=== PATIENT | male | born 1955 | race American Indian/Alaskan Native ===

== ENCOUNTER 2017-11-04 09:00 | Day surgery (SDC) | payer OTHER ==
[2017-11-04 10:17] LABS: Basophils % (Auto) 0.6 % (0.0-1.8); Eosinophils # (Auto) 0.1 K/mm3 (0.0-0.4); Eosinophils % (Auto) 2.4 % (0.0-4.3); Hematocrit 41.7 % (35.5-45.6); Hemoglobin 13.8 gm/dl (11.8-15.2); Lymphocytes # (Auto) 1.6 K/mm3 (1.2-5.4); Lymphocytes % (Auto) 26.3 % (13.4-35.0); Mean Corpuscular HGB Conc 33 % (32-34); Mean Corpuscular Hemoglobin 30 pg (28-32); Mean Corpuscular Volume 92 fl (84-94); Monocytes # (Auto) 0.6 K/mm3 (0.0-0.8); Monocytes % (Auto) 9.3 % (0.0-7.3); Platelet Count 152 K/mm3 (140-440); Red Blood Count 4.52 M/mm3 (3.65-5.03); Red Cell Distribution Width 15.5 % (13.2-15.2)
[2017-11-04 10:30] LABS: BUN/Creatinine Ratio 15; Blood Urea Nitrogen 18 mg/dL (9-20); Calcium 8.9 mg/dL (8.4-10.2); Hemolysis Index 15
[2017-11-04 10:38] LABS: INR 0.91 (0.87-1.13); Partial Thromboplastin Time 30.1 Sec. (24.2-36.6)
[2017-11-04] MEDS ORDERED: HEPARIN/NS 5000 UNIT/500ML(CATH LAB) 500 ML IR ONE (11:59)
[2017-11-04] MEDS ORDERED: VERSED ONE (12:05)
[2017-11-04] MEDS ORDERED: NACL 0.9% 500 ML 500 ML ONE (12:17)
[2017-11-04] MEDS: SUBLIMAZE ONE ×2 (12:31→12:38)
[2017-11-04] MEDS: XYLOCAINE 2% INFILTRATI ONE ×2 (12:35→12:37)
[2017-11-04] MEDS ORDERED: TORADOL ONE (12:57)
[2017-11-04] MEDS ORDERED: ANCEF/STERILE WATER 2 GM/20 ML 2 GM/20 ML SYRINGE IV ONE (12:57)
--- NOTE | 2017-11-04 13:07 | Short Stay Summary ---
Short Stay Documentation Date of service: 11/04/17 - History Principal diagnosis: venous insufficiency H&P: obtained from office - Allergies and Medications Current Medications: Allergies No Known Allergies Allergy (Unverified 11/04/17 09:00) Home Medications Medication Instructions Recorded Confirmed Last Taken Type Aspirin BABY CHEW TAB 81 mg PO QDAY 11/04/17 11/04/17 11/03/17 History Lisinopril/Hydrochlorothiazide 1 tab PO DAILY 11/04/17 11/04/17 11/04/17 08:00 History [Zestoretic 20-12.5 mg] Pravastatin [Pravachol] 40 mg PO QDAY 11/04/17 11/04/17 11/03/17 History 40 Tamsulosin [Flomax] 0.4 mg PO QDAY 11/04/17 11/04/17 11/03/17 History oxyCODONE /ACETAMINOPHEN [Percocet 1 tab PO Q6HR PRN #25 tablet 11/04/17 Unknown Rx 5/325] - Brief post op/procedure progress note Date of procedure: 11/04/17 Pre-op diagnosis: vwenous insuffiency/compression of vein Post-op diagnosis: same Procedure: BLE venogram and stent placement Anesthesia: local Surgeon: JESSIKA MONTES Estimated blood loss: minimal Pathology: none Condition: stable - Disposition Condition at discharge: Good Disposition: [id number] TO HOME OR SELFCARE Short Stay Discharge Plan Activity: advance as tolerated Weight Bearing Status: Weight Bear as Tolerated Diet: regular Wound: keep clean and dry, per your surgeon's advice Follow up with: QUIANA KEEN JR, MD [Primary Care Provider] - 7 Days Prescriptions: oxyCODONE /ACETAMINOPHEN [Percocet 5/325] 1 tab PO Q6HR PRN #25 tablet PRN Reason: Pain
--- NOTE | 2017-11-04 13:12 | Operative Report ---
Operative Report Operative Report: Exam: Bilateral lower extremity venogram, venous intravascular ultrasound, venoplasty with stent placement Clinical indication: Patient with venous hypertension secondary to compression of vein Date: 11/04/2017 Procedure: Following an explanation of the risks, benefits and alternatives; written informed consent was obtained. The patient was brought to the angiographic suite and placed in supine position on the examination table. Initial evaluation of his legs demonstrated a patent femoral veins bilaterally. His legs were prepped from mid thigh to groin bilaterally. 1% lidocaine was used for anesthesia. Under ultrasound guidance, the right femoral vein was cannulated proximally using a 7 cm 18-gauge needle. A 0.035 guidewire was advanced centrally. The needle was removed and a 5 German sheath placed over the guidewire. Access to the left femoral vein was obtained in a similar fashion and a second 5 German sheath placed in the left femoral vein. Venography was performed to bilateral sheaths. This demonstrates diffuse mild narrowing of the right common iliac and external iliac vein with focal narrowing of the left external iliac vein and a decision was made to evaluate further with intravascular ultrasound. Intravascular ultrasound was performed on the right from the IVC to the sheath insertion site. The IVC is patent. There is 20% stenosis involving the common iliac vein on the right and external iliac vein on the right. The right common femoral vein is patent. Intravascular ultrasound was then performed on the left from the IVC to the sheath insertion site. There is patency of the common iliac vein on the left. 70% stenosis is present involving the left external iliac vein the left common femoral vein is patent. A decision was made to treat this lesion with stents. The stents were deployed in kissing fashion for support. An 18 mm x 90 mm Wallstent was advanced through the right sheath and an 18 x 90 mm Wallstent was advanced through the left sheath. The stents were placed so that distal aspect of the stent is just above the bifurcation and the stents were then deployed to exclude lesion. The stents were seated using 16 mm atlas balloons insufflated to 4 shahab at multiple locations. Posttreatment imaging demonstrates reduction of the stenoses to 0%. Brisk flow was present throughout the IVC and was followed to the heart were there appears to be no cardiac dysfunction on venous angiography. At this point, the catheters, guidewires and sheaths were removed and hemostasis achieved using manual compression. A sterile dressing was then applied. The patient tolerated the procedure well. There were no immediate post procedure complications. Conscious sedation was performed under the guidance of radiologic nursing. Continuous cardiopulmonary monitoring was utilized. Impression: 1) Bilateral lower extremity venogram demonstrating stenosis predominantly involving the left external iliac vein. 2) Intravascular ultrasound performed in the IVC, right common iliac vein, right external iliac vein, right common femoral vein, left common iliac vein, left external iliac vein and left common femoral vein. 3) Treatment of the stenoses using kissing stents as described with residual 0% stenosis
[2017-11-04 14:25] VITALS: BP 146/83
== END 2017-11-04 09:01 | disposition home or self-care (01) ==
LOC: CATHLABREC 09:00
PROVIDERS: ATTEND Radiology Diagnostic Radiology
DX: I87.1 Compression of vein (principal); I87.303 Chronic venous hypertension (idiopathic) without complications of bilateral lower extremity; Z79.01 Long term (current) use of anticoagulants
CPT/HCPCS: 36415; 37238; 37239; 37252; 37253; 75822; 76937; 80048; 85025; 85610; 85730; 99156; 99157; C1725; C1753; C1769; C1876; C1894; J0690; J1644; J1885; J2250; J3010; J7040; Q9967